=== PATIENT | female | born 1990 | race American Indian/Alaskan Native ===

== ENCOUNTER 2017-11-26 11:24 | Emergency (ER) | payer SELFPAY ==
[2017-11-26 11:30] VITALS: BP 140/78
[2017-11-26 12:35] LABS: HCG Qualitative,Urine Positive (Negative)
[2017-11-26 12:37] LABS: Bacteria,Urine 3+ /HPF (Negative); Bilirubin,Urine NEG (Negative); Blood,Urine SM (Negative); Color,Urine Yellow (Yellow); Mucus,Urine FEW /HPF; Protein,Urine <15 mg/dL mg/dL (Negative); Urobilinogen,Urine < 2.0 mg/dL (<2.0)
--- NOTE | 2017-11-26 12:39 | Emergency Department Report ---
ED Abdominal Pain HPI - General Chief Complaint: Abdominal Pain Stated Complaint: TEST Time Seen by Provider: 11/26/17 12:31 Source: patient Mode of arrival: Ambulatory Limitations: No Limitations - History of Present Illness Initial Comments: Patient is 27 years old female with no significant past medical history. Patient presented to the ER complaining of lower abdominal pain for the last few weeks. Describes pain as cramping associated some nausea but no vomiting. Patient stated that she had irregular cycle. She stated that last regular period she had was in May 2017. Patient denied any fever or diarrhea. MD Complaint: abdominal pain - Related Data Allergies Allergy/AdvReac Type Severity Reaction Status Date / Time No Known Allergies Allergy Verified 05/18/15 15:56 ED Review of Systems ROS: Stated complaint: TEST Other details as noted in HPI Comment: All other systems reviewed and negative Constitutional: denies: chills, fever ENT: denies: ear pain Respiratory: denies: cough Cardiovascular: denies: chest pain, palpitations Gastrointestinal: abdominal pain, nausea. denies: vomiting, diarrhea, constipation, hematemesis, melena, hematochezia Genitourinary: denies: urgency, frequency, hematuria Musculoskeletal: denies: back pain Neurological: denies: headache, weakness, numbness, paresthesias, confusion, abnormal gait, vertigo ED Past Medical Hx - Past Medical History Previous Medical History?: No - Surgical History Past Surgical History?: No - Social History Smoking Status: Never Smoker Substance Use Type: None ED Physical Exam - General Limitations: No Limitations General appearance: alert, in no apparent distress - Head Head exam: Present: atraumatic, normocephalic, normal inspection - ENT ENT exam: Present: normal exam, normal orophraynx, mucous membranes moist - Neck Neck exam: Present: normal inspection, full ROM. Absent: tenderness, meningismus, lymphadenopathy, thyromegaly - Respiratory Respiratory exam: Present: normal lung sounds bilaterally. Absent: respiratory distress, wheezes, rales, rhonchi, stridor, accessory muscle use, decreased breath sounds, prolonged expiratory - Cardiovascular Cardiovascular Exam: Present: regular rate, normal rhythm, normal heart sounds - GI/Abdominal GI/Abdominal exam: Present: soft, normal bowel sounds. Absent: distended, tenderness, guarding, rebound, rigid, organomegaly, mass, bruit, pulsatile mass - Extremities Exam Extremities exam: Present: normal inspection, full ROM, normal capillary refill - Back Exam Back exam: Present: normal inspection, full ROM. Absent: tenderness, CVA tenderness (R), CVA tenderness (L), muscle spasm, paraspinal tenderness, vertebral tenderness, rash noted - Neurological Exam Neurological exam: Present: alert, oriented X3, CN II-XII intact, normal gait, reflexes normal - Skin Skin exam: Present: warm, intact, normal color ED Course Vital Signs 11/26/17 11:25 Temperature 98.7 F Pulse Rate 113 H Respiratory 20 Rate Blood Pressure 140/78 O2 Sat by Pulse 100 Oximetry ED Medical Decision Making - Lab Data Result diagrams: 11/26/17 12:57 11/26/17 12:57 - Radiology Data Radiology results: report reviewed Referring Physician: RAMONITA PARKER Patient Name: ROSALES CABRAL Date of : 1990 Sex: Female Report Date: 2017-11-26 Report Status: [place] [address] Ultrasound Report Signed Patient: ROSALES CABRAL MR#: [id number] : 1990 Acct:[id number] Age/Sex: 27 / F ADM Date: 11/26/17 Loc: ED Attending Dr: Ordering Physician: RAMONITA PARKER Date of Service: 11/26/17 Procedure(s): US OB >= 14 weeks Fetus Accession Number(s): [id number] cc: RAMONITA PARKER OB ULTRASOUND History abdominal pain during . Technique: Transabdominal ultrasound with Doppler interrogation. Gestation: Single Position: Cephalic Amniotic Fluid: Within normal limits Placenta: Posterior Placental Grade: 1 Heart Rate: 157 BPM Cervical length: 4.0 cm (Normal > 3 cm) NEUROANATOMY VISUALIZED: Choroid Plexus Cisterna Magnum Cerebellum Lateral Ventricle ANATOMY VISUALIZED: Stomach Kidneys Bladder Diaphragm 4 Chamber Heart Heart 3 Vessel Cord Abd. Cord Insert SPINE VISUALIZED: Longitudinal Transverse BPD: 4.6 cm = 20 w 0 d HC: 18.4 cm = 20 w 6 d AC: 14.9 cm = 20 w 1 d FL: 3.5 cm = 21 w 0 d HC/AC Ratio: 1.24 Cephalic Index: 74.9 Estimated Weight: 359 grams LMP: 05/28/17 Clinical age = 26 w 0 d EDC: 03/04/18 US Gest. Age = 20 w 4 d EDC: 04/11/18 IMPRESSION: Viable, single intrauterine as described. No acute abnormality is detected. Transcribed By: TTR Dictated By: DON INIGUEZ JR, MD Electronically Authenticated By: DON INIGUEZ JR, MD Signed Date/Time: 11/26/171499 DD/ 56 TD/TT: 11/26/171499 Critical care attestation.: If time is entered above; I have spent that time in minutes in the direct care of this critically ill patient, excluding procedure time. ED Disposition Clinical Impression: Abdominal pain affecting , UTI (urinary tract infection) Disposition: - TO HOME OR SELFCARE Is pt being admited?: No Condition: Stable Instructions: Abdominal Pain in (ED), Urinary Tract Infection in Women (ED) Referrals: PRIMARY CAREMD [Primary Care Provider] - 3-5 Days
[2017-11-26 13:28] LABS: Basophils # (Auto) 0.1 K/mm3 (0.0-0.1); Basophils % (Auto) 0.9 % (0.0-1.8); Eosinophils # (Auto) 0.1 K/mm3 (0.0-0.4); Hematocrit 33.2 % (30.3-42.9); Hemoglobin 11.2 gm/dl (10.1-14.3); Lymphocytes # (Auto) 1.5 K/mm3 (1.2-5.4); Lymphocytes % (Auto) 21.6 % (13.4-35.0); Mean Corpuscular HGB Conc 34 % (30-34); Mean Corpuscular Hemoglobin 30 pg (28-32); Mean Corpuscular Volume 88 fl (79-97); Monocytes # (Auto) 0.6 K/mm3 (0.0-0.8); Monocytes % (Auto) 8.5 % (0.0-7.3); Platelet Count 386 K/mm3 (140-440); Red Blood Count 3.78 M/mm3 (3.65-5.03); Red Cell Distribution Width 13.1 % (13.2-15.2)
[2017-11-26 13:31] LABS: BUN/Creatinine Ratio 6; Blood Urea Nitrogen 3 mg/dL (7-17); Calcium 9.7 mg/dL (8.4-10.2); Hemolysis Index 0
--- NOTE | 2017-11-26 15:22 | Ultrasound Report ---
OB ULTRASOUND History abdominal pain during . Technique: Transabdominal ultrasound with Doppler interrogation. Gestation: Single Position: Cephalic Amniotic Fluid: Within normal limits Placenta: Posterior Placental Grade: 1 Heart Rate: 157 BPM Cervical length: 4.0 cm (Normal > 3 cm) NEUROANATOMY VISUALIZED: Choroid Plexus Cisterna Magnum Cerebellum Lateral Ventricle ANATOMY VISUALIZED: Stomach Kidneys Bladder Diaphragm 4 Chamber Heart Heart 3 Vessel Cord Abd. Cord Insert SPINE VISUALIZED: Longitudinal Transverse BPD: 4.6 cm = 20 w 0 d HC: 18.4 cm = 20 w 6 d AC: 14.9 cm = 20 w 1 d FL: 3.5 cm = 21 w 0 d HC/AC Ratio: 1.24 Cephalic Index: 74.9 Estimated Weight: 359 grams LMP: 05/28/17 Clinical age = 26 w 0 d EDC: 03/04/18 US Gest. Age = 20 w 4 d EDC: 04/11/18 IMPRESSION: Viable, single intrauterine as described. No acute abnormality is detected.
== END 2017-11-26 16:02 | disposition home or self-care (01) ==
LOC: ED 11:24
DX: O26.892 Other specified pregnancy related conditions, second trimester (principal); R10.2 Pelvic and perineal pain; O23.42 Unspecified infection of urinary tract in pregnancy, second trimester; Z3A.20 20 weeks gestation of pregnancy
CPT/HCPCS: 36415; 76805; 80048; 81001; 81025; 84702; 85025; 86900; 86901